=== PATIENT | male | born 1990 | race Two or more races ===

== ENCOUNTER 2018-06-20 00:40 | Emergency (ER) | payer OTHER ==
[~2018-06-20] VITALS: Ht 175.3 cm; Wt 88.0 kg
[2018-06-20 00:42] VITALS: BP 148/78
--- NOTE | 2018-06-20 01:01 | NUR ---
RADIOLOGY AT BEDSIDE
[2018-06-20] MEDS ORDERED: HYDROcodone/APAP 10/325 MG TABLET ONE (01:28)
[2018-06-20] MEDS ORDERED: HYDROcodone/APAP 10/325 MG TABLET PO ONE (01:30)
== END 2018-06-20 02:37 | disposition home or self-care (01) ==
LOC: ED 02:11
DX: S87.82XA Crushing injury of left lower leg, initial encounter (principal); V83.9XXA Unspecified occupant of special industrial vehicle injured in nontraffic accident, initial encounter; Y93.89 Activity, other specified; Y92.69 Other specified industrial and construction area as the place of occurrence of the external cause; Y99.0 Civilian activity done for income or pay
CPT/HCPCS: 99283